=== PATIENT | male | born 1970 | race American Indian/Alaskan Native ===

== ENCOUNTER 2017-08-05 19:05 | Emergency (ER) | payer BC ==
[2017-08-05] MEDS ORDERED: D50W (25GM) Vial 50 ML IV ONE (19:32)
[2017-08-05 20:00] LABS: Basophils % (Auto) 0.3 % (0.0-1.8); Eosinophils % (Auto) 0.6 % (0.0-4.3); Hematocrit 39.1 % (35.5-45.6); Hemoglobin 12.8 gm/dl (11.8-15.2); Mean Corpuscular HGB Conc 33 % (32-34); Mean Corpuscular Volume 76 fl (84-94); Platelet Count 229 K/mm3 (140-440); Red Blood Count 5.15 M/mm3 (3.65-5.03); Red Cell Distribution Width 15.6 % (13.2-15.2); White Blood Count 7.9 K/mm3 (4.5-11.0)
[2017-08-05] MEDS ORDERED: D50W (25GM) Vial IV ONE (20:00)
[2017-08-05 20:01] LABS: Mean Corpuscular Hemoglobin 25 pg (28-32)
--- NOTE | 2017-08-05 20:10 | Emergency Department Report ---
ED General Adult HPI - General Chief complaint: Seizure Stated complaint: LOW BLOOD SUGAR Time Seen by Provider: 08/05/17 19:55 Source: EMS Mode of arrival: Stretcher Limitations: No Limitations - History of Present Illness Initial comments: Patient is 47 years old male brought by EMS for low blood sugar and seizure. Patient stated that he was watching football game and then he went to sleep his daughters try to wake him up but he is not responding, she call EMS, blood sugar was 29 given dextrose 50 his blood sugar is 48 by the time he gets to the ER another D50 was given. Patient and family confirmed that whenever his blood sugar go down he will have seizure he is not on any seizure medication. Patient is completely back to normal answering all questions appropriately. Denied any headache chest pain, shortness of breath,nausea or vomiting or fever. Patient is on insulin 70/30, 35 units twice a day stated that he did eat his breakfast and lunch too. - Related Data Allergies Allergy/AdvReac Type Severity Reaction Status Date / Time No Known Allergies Allergy Unverified 08/05/17 19:51 ED Review of Systems ROS: Stated complaint: LOW BLOOD SUGAR Other details as noted in HPI Comment: All other systems reviewed and negative Constitutional: denies: chills, fever ENT: denies: throat pain Respiratory: denies: cough, shortness of breath, SOB with exertion Cardiovascular: denies: chest pain, palpitations, dyspnea on exertion Gastrointestinal: denies: abdominal pain, nausea, vomiting, diarrhea Skin: denies: rash Neurological: denies: headache, weakness, numbness ED Past Medical Hx - Past Medical History Previous Medical History?: Yes Hx Hypertension: Yes Hx Diabetes: Yes Hx Seizures: Yes ED Physical Exam - General Limitations: No Limitations General appearance: alert, in no apparent distress - Head Head exam: Present: atraumatic - Eye Eye exam: Present: normal appearance - ENT ENT exam: Present: normal exam - Neck Neck exam: Present: normal inspection. Absent: tenderness, meningismus, full ROM - Respiratory Respiratory exam: Present: normal lung sounds bilaterally. Absent: respiratory distress, wheezes, rales, rhonchi - Cardiovascular Cardiovascular Exam: Present: regular rate, normal rhythm, normal heart sounds - GI/Abdominal GI/Abdominal exam: Present: soft, normal bowel sounds. Absent: distended, tenderness, guarding, rebound, rigid, mass, bruit, pulsatile mass - Back Exam Back exam: Present: normal inspection. Absent: CVA tenderness (R), CVA tenderness (L) - Neurological Exam Neurological exam: Present: alert, oriented X3, CN II-XII intact - Skin Skin exam: Present: warm, intact, normal color. Absent: cyanosis ED Course Vital Signs 08/05/17 08/05/17 19:18 19:44 Temperature 97.8 F 97.8 F Respiratory 18 18 Rate Blood Pressure 178/99 178/99 - Reevaluation(s) Reevaluation #1: 08/05/17 22:46 Patient is a wake, alert talking to his family in no acute distress. Reevaluation #2: 08/06/17 00:55 Patient is a wake, oriented 3, talking to his family in no acute distress, blood sugar 201. ED Medical Decision Making - Lab Data Result diagrams: 08/05/17 19:40 08/05/17 19:40 - EKG Data -: EKG Interpreted by Me EKG shows normal: sinus rhythm Rate: normal - EKG Data Interpretation: no acute changes - Radiology Data Radiology results: report reviewed Critical care attestation.: If time is entered above; I have spent that time in minutes in the direct care of this critically ill patient, excluding procedure time. ED Disposition Clinical Impression: Hypoglycemia due to insulin Disposition: DC-01 TO HOME OR SELFCARE Is pt being admited?: No Condition: Stable Instructions: Diabetic Hypoglycemia (ED) Referrals: PRIMARY CARE, [Primary Care Provider] - 3-5 Days
[2017-08-05 20:16] LABS: Chloride 107.3 mmol/L (98-107)
[2017-08-05 20:23] LABS: Bilirubin,Urine NEG (Negative); Blood,Urine SM (Negative); Ketones,Urine NEG (Negative); Leukocyte Esterase,Urine NEG (Negative); Mucus,Urine FEW /HPF; Nitrite,Urine NEG (Negative); Urobilinogen,Urine < 2.0 mg/dL (<2.0)
[2017-08-05 20:31] LABS: Protein,Urine >500 mg/dL (Negative)
[2017-08-05] MEDS ORDERED: D5LR 1,000 ML IV SCH (21:00)
[2017-08-06 01:16] VITALS: BP 138/92
== END 2017-08-06 01:16 | disposition home or self-care (01) ==
LOC: ED 19:05
DX: E11.649 Type 2 diabetes mellitus with hypoglycemia without coma (principal); R56.9 Unspecified convulsions; I10 Essential (primary) hypertension; Z79.4 Long term (current) use of insulin
CPT/HCPCS: 36415; 80048; 81001; 82962; 84484; 85025; 93005; 93010; 96361; 96374; 99284; J7121